=== PATIENT | male | born 1990 | race Caucasian/White ===

== ENCOUNTER 2020-04-08 16:29 | Emergency (ER) | payer SELFPAY ==
[~2020-04-08] VITALS: Ht 188 cm; Wt 117.9 kg
[2020-04-08] MEDS ORDERED: Keflex500 MG PO (18:11)
== END 2020-04-08 18:30 | disposition home or self-care (01) ==
LOC: ER 16:29
DX: S61.012A Laceration without foreign body of left thumb without damage to nail, initial encounter (principal); F17.200 Nicotine dependence, unspecified, uncomplicated; W26.0XXA Contact with knife, initial encounter
CPT/HCPCS: 12002; 99282-25; A9270-GY

== ENCOUNTER 2021-01-01 04:40 | Emergency (ER) | payer OTHER ==
[~2021-01-01] VITALS: Ht 190.5 cm; Wt 113.4 kg
[~2021-01-01 04:40] MED LIST: Keflex500 MG PO
[2021-01-01] MEDS ORDERED: ERYT1OIN RIGHTEYE (05:12)
[2021-01-01] MEDS ORDERED: IBUP800 PO (05:18)
== END 2021-01-01 07:01 | disposition home or self-care (01) ==
LOC: ER 04:40
DX: H16.131 Photokeratitis, right eye (principal)
CPT/HCPCS: 99283-25; A9270